=== PATIENT | male | born 1975 | race Caucasian/White ===

== ENCOUNTER 2021-03-31 14:41 | Emergency (ER) | payer OTHER ==
[~2021-03-31] VITALS: Ht 172.7 cm; Wt 76.3 kg
[~2021-03-31 14:41] MED LIST changes: -LIDOCAINE 1%/EPI 1:100,000 20 ML VIAL. INJ ONE
--- NOTE | 2021-03-31 16:11 | PHYS DOC ---
Past Medical History Past Medical History: No Pertinent History Past Surgical History: Other Additional Past Surgical Histo: RIGHT ARM Smoking Status: Never Smoker Alcohol Use: None General Adult EDM: Chief Complaint: POST-OP PROBLEM HPI: HPI: Patient is a 45 year old male who presents with had surgery by Dr. Perez this morning on his right dorsal forearm that was an incision and drainage from an abscess. It was packed and dressed and patient was sent home. States it to continue regular activity. Patient went home and started cutting down trees with a chainsaw. He did not notice that there was blood all over his arm and on his pants. He states he went inside and on dressed it and it was bleeding a moderate amount and he took the packing out. He states he called the office and the doctor's office stated for him to come to the ER. Patient's bleeding has since stopped. He denies any pain at this time. Review of Systems: Review of Systems: Constitutional: Denies fever or chills. [] Eyes: Denies change in visual acuity. [] HENT: Denies nasal congestion or sore throat. [] Respiratory: Denies cough or shortness of breath. [] Cardiovascular: Denies chest pain or edema. [] GI: Denies abdominal pain, nausea, vomiting, bloody stools or diarrhea. [] : Denies dysuria. [] Musculoskeletal: Denies back pain or joint pain. [] Integument: Denies rash. +Surgical incision wound to right dorsal forearm [] Neurologic: Denies headache, focal weakness or sensory changes. [] Endocrine: Denies polyuria or polydipsia. [] Lymphatic: Denies swollen glands. [] Psychiatric: Denies depression or anxiety. [] Heart Score: C/O Chest Pain: No Risk Factors: Risk Factors: DM, Current or recent (<one month) smoker, HTN, HLP, family history of CAD, obesity. Risk Scores: Score 0 - 3: 2.5% MACE over next 6 weeks - Discharge Home Score 4 - 6: 20.3% MACE over next 6 weeks - Admit for Clinical Observation Score 7 - 10: 72.7% MACE over next 6 weeks - Early Invasive Strategies Allergies: Allergies: Allergies Coded Allergies Type Severity Reaction Last Updated Verified Sulfa (Sulfonamide Antibiotics) Allergy Intermediate Rash 03/31/21 Yes sulfamethoxazole Allergy Intermediate Rash 03/31/21 Yes trimethoprim Allergy Intermediate Rash 03/31/21 Yes Physical Exam: PE: Constitutional: Well developed, well nourished, no acute distress, non-toxic appearance. [] HENT: Normocephalic, atraumatic, bilateral external ears normal, oropharynx mo ist, no oral exudates, nose normal. [] Eyes: PERRLA, EOMI, conjunctiva normal, no discharge. [] Neck: Normal range of motion, no tenderness, supple, no stridor. [] Cardiovascular:Heart rate regular rhythm, no murmur [] Lungs & Thorax: Bilateral breath sounds clear to auscultation [] Abdomen: Bowel sounds normal, soft, no tenderness, no masses, no pulsatile masses. [] Skin: Warm, dry, no erythema, no rash. Right dorsal forearm surgical incision [] Back: No tenderness, no CVA tenderness. [] Extremities: No tenderness, no cyanosis, no clubbing, ROM intact, no edema. [] Neurologic: Alert and oriented X 3, normal motor function, normal sensory function, no focal deficits noted. [] Psychologic: Affect normal, judgement normal, mood normal. [] Current Patient Data: Vital Signs: Vital Signs Date Time Temp Pulse Resp B/P (MAP) Pulse Ox O2 Delivery O2 Flow Rate FiO2 03/31/21 14:42 98.3 86 22 114/73 (87) 97 Room Air 98.3 EKG: EKG: [] Radiology/Procedures: Radiology/Procedures: [] Course & Med Decision Making: Course & Med Decision Making Pertinent Labs and Imaging studies reviewed. (See chart for details) See HPI. Radial pulses strong and present. Bleeding has stopped. Cap refills less than 2 seconds. Patient has full range of motion of his hand and all of his fingers. Alert and oriented x4. Ambulatory with steady gait. Skin pink warm and dry. Afebrile. Patient is stable. I have put a call out to Dr. Perez and I am awaiting a phone call back. Dr. Locke states to redress the area. [] Carina Disclaimer: Carina Disclaimer: This electronic medical record was generated, in whole or in part, using a voice recognition dictation system. Departure Departure Impression: Primary Impression: Post-operative complication Qualified Codes: L76.82 - Other postprocedural complications of skin and subcutaneous tissue Disposition: HOME / SELF CARE / HOMELESS Condition: STABLE Referrals: RAÚL LIN (PCP) DIAEN PEREZ MD Patient Instructions: Abscess, Care After Additional Instructions: Follow-up with Dr. Perez as scheduled. Rest arm do not be doing any outside yard work or anything strenuous. JUDY ARANGO APRN Mar 31, 2021 16:11
[2021-03-31 17:40] VITALS: BP 103/58
== END 2021-03-31 17:40 | disposition home or self-care (01) ==
LOC: ER 14:41
DX: L76.82 Other postprocedural complications of skin and subcutaneous tissue (principal); Z88.2 Allergy status to sulfonamides; Z88.1 Allergy status to other antibiotic agents
CPT/HCPCS: 99281

== ENCOUNTER → 2021-03-31 | Day surgery (SDC) | payer OTHER ==
[~2021-03-31] VITALS: Ht 172.7 cm; Wt 76.0 kg
[~2021-03-31] MED LIST: FEXO180T81 PO; IBUP200T44 PO; LEVO50TA PO; LIDOCAINE 1%/EPI 1:100,000 20 ML VIAL. INJ ONE; MELO15TA23 PO
[2021-03-31 10:57] VITALS: BP 106/72
--- NOTE | 2021-03-31 11:35 | PDOC4 ---
Operative Note Operative Note Date: March 31, 2021 at 1132 Preoperative diagnosis: Right upper extremity abscess Postoperative diagnosis: Same Procedure: Incision and drainage of right upper extremity abscess Surgeon: Chris Dictation: Patient is a 45-year-old male who developed an abscess of his right forearm which drained spontaneously and then developed another lump above this area ultrasound was done which showed a complex fluid collection about 3 cm. The procedure of incision and drainage of abscess was explained to the patient detail was benefits were also discussed including bleeding infection alternatives this procedure also discussed with the patient who seemed to understand and gave a verbal and written consent to head CT performed. Patient was taken to the minor's room placed in the supine position the right forearm was prepped and draped in usual sterile fashion using ChloraPrep and area over the lump was injected with 1% lidocaine with epinephrine once this anesthetized using 15 blade scalpel incision was made through the skin down through the subcutaneous tissue the subcutaneous tissue was quite thickened there was a small amount of serous-like fluid which was expressed. Wound was explored with hemostat no further fluid collections were encountered. Wound was then packed with Nu Gauze half-inch and wrapped with 4 x 4's and Kerlix. Patient tolerated procedure well was discharged home in stable condition all sponge instrument needle counts listed as correct estimated blood loss 5 mL DIANE WASHINGTON MD Mar 31, 2021 11:35
--- NOTE | 2021-03-31 11:37 | DISCH ---
DISCHARGE INSTRUCTIONS Condition on Discharge Condition on Discharge: Stable Activity After Discharge Activity Instructions for Disc: Activity as tolerated Other activity instructions: May shower in 24-hour Diet after Discharge Diet after Discharge: Regular Wound Incision Care Other wound/incision instructi: Change dressing and packing daily Contacting the [facility] after DC Call your doctor for: If your condition worsens Follow-Up Follow up with: Dr. Washington in 2 weeks DIANE WASHINGTON MD Mar 31, 2021 11:37
== END | disposition home or self-care (01) ==
LOC: SURG 10:30
PROVIDERS: ATTEND Surgery
DX: L02.413 Cutaneous abscess of right upper limb (principal); J45.909 Unspecified asthma, uncomplicated; M19.90 Unspecified osteoarthritis, unspecified site; E03.9 Hypothyroidism, unspecified; F41.9 Anxiety disorder, unspecified; F32.9 Major depressive disorder, single episode, unspecified; Z85.828 Personal history of other malignant neoplasm of skin; Z79.899 Other long term (current) drug therapy; Z88.2 Allergy status to sulfonamides; Z88.8 Allergy status to other drugs, medicaments and biological substances; Z98.890 Other specified postprocedural states
CPT/HCPCS: 10061; J3490